=== PATIENT | female | born 1940 | race Caucasian/White ===

== ENCOUNTER → 2016-06-27 | Outpatient (CLI) | payer OTHER ==
[~2016-06-27] MED LIST: ASCO500T16 PO; ASPI81TA28 PO; CYAN250T PO; MRLP17X PO; NCNUNK PO; OMEGCAP2 PO
== END | disposition home or self-care (01) ==
LOC: C.RDSM 13:45
PROVIDERS: ATTEND Orthopaedic Surgery Sports Medicine
DX: Z09 Encounter for follow-up examination after completed treatment for conditions other than malignant neoplasm (principal)

== ENCOUNTER → 2016-07-05 | Outpatient (CLI) | payer OTHER ==
--- NOTE | 2016-07-07 15:56 | DIAGNOSTIC IMAGING REPORT ---
PET/CT HISTORY: BREAST CANCER TECHNIQUE: PET/CT was performed from the base of the skull through the pelvis following the intravenous administration of 14.8 mCi of F18-FDG. Non-contrast CT imaging was performed over the same range without breath-hold for attenuation correction of PET images and anatomic correlation, but not for primary interpretation as it is not of standard diagnostic quality. CT DOSE: COMPARISON: Head CT 01/12/2016. FINDINGS: HEAD AND NECK: There is no FDG-avid disease or significant lymphadenopathy in the imaged portions of the head and the neck. CHEST: There is no FDG-avid disease in the chest. There is no axillary, mediastinal, or hilar lymphadenopathy. There is no pleural or pericardial effusion. Stable 5 mm nodular density at the base of the left lower lobe on image 89 and a stable 2 mm nodular density within the left upper lobe image 48. These do not demonstrate abnormal FDG uptake. The ascending thoracic aorta remains distended up to 4.3 cm. There is an aberrant right subclavian artery. Old rib fractures are again noted. ABDOMEN/PELVIS: Below the diaphragm, tracer is distributed physiologically in the gastrointestinal and genitourinary tracts. There is no significant lymphadenopathy and no FDG-avid disease. MUSCULOSKELETAL: Multiple scattered lytic lesions seen within the axial and appendicular skeleton are not significantly changed. These do not demonstrate significant FDG uptake. Internal fixation of the left proximal femoral fracture is again noted. The FDG uptake associated with the fracture site has improved. This demonstrates an SUV max of 2.7, previous demonstrating an SUV max of 4.0. The subcutaneous fluid collection within the lateral acetabular hip has resolved. There remains a 2 cm hyperdense FDG avid soft tissue focus at this location. This demonstrates an SUV max of 2.7. IMPRESSION: 1. The FDG uptake associated with the internal fixation of the left proximal femoral fracture has improved. 2. The subcutaneous fluid collection within the lateral aspect of the hip has resolved. There remains a 2 cm hyperdense degenerative soft tissue focus at this location. This demonstrate an SUV max of 2.7. This could represent postoperative granulation tissue or possibly a metastatic focus. This should be reassessed on follow-up PET/CT. 3. No significant change in the multiple scattered lytic lesions seen throughout the axial and appendicular skeleton. These do not demonstrate significant FDG uptake. 4. Stable subcentimeter nodules within the left lung which do not demonstrate abnormal FDG uptake. Electronically signed by: Aleksey Ceja M.D. 07/07/2016 3:54 PM Dictated Date/Time: 07/05/2016 11:03 AM
== END | disposition home or self-care (01) ==
LOC: C.PET 07:26
PROVIDERS: ATTEND Internal Medicine Hematology
DX: C50.911 Malignant neoplasm of unspecified site of right female breast (principal); C79.51 Secondary malignant neoplasm of bone

== ENCOUNTER → 2016-08-17 | Outpatient (CLI) | payer OTHER | END | disposition home or self-care (01) | LOC: C.MAMM 08:30 | PROVIDERS: ATTEND Family Medicine | DX: M81.0 Age-related osteoporosis without current pathological fracture (principal); M85.88 Other specified disorders of bone density and structure, other site ==

== ENCOUNTER → 2016-12-08 | Outpatient (CLI) | payer OTHER ==
--- NOTE | 2016-12-11 10:05 | MAMMOGRAPHY REPORT ---
UNILATERAL LEFT DIGITAL SCREENING MAMMOGRAM TOMOSYNTHESIS WITH CAD: 12/08/2016 CLINICAL HISTORY: Asymptomatic. Personal history of breast cancer. TECHNIQUE: Breast tomosynthesis in addition to standard 2D mammography was performed. Current study was also evaluated with a Computer Aided Detection (CAD) system. Left CC and MLO 2-D and tomosynthes is images were obtained. COMPARISON: Comparison is made to exams dated: 11/01/2015 mammogram, 10/27/2014 mammogram, 10/24/2013 ma mmogram, 10/23/2012 mammogram, 10/23/2011 mammogram, and 10/17/2010 mammogram - [facility] nter. BREAST COMPOSITION: There are scattered areas of fibroglandular density in the left breast. FINDINGS: There are no suspicious masses, calcifications, or areas of architectural distortion noted in the left breast. There has been no significant interval change compared to prior exams. IMPRESSION: ACR BI-RADS CATEGORY 1: NEGATIVE There is no mammographic evidence of malignancy. A 1 year screening mammogram is recommended. The pa tient will receive written notification of the results. Approximately 10% of breast cancers are not detected with mammography. A negative mammographic report should not delay biopsy if a clinically suggestive mass is present. Brigida Garland M.D. ah/:12/08/2016 12:31:20 [employer]: Katelin NICHOLS(Nicolas)(M), [facility] letter sent: Normal 1/2 BI-RADS Code: ACR BI-RADS Category 1: Negative
== END | disposition home or self-care (01) ==
LOC: C.MAMM 08:39
PROVIDERS: ATTEND Obstetrics & Gynecology
DX: Z12.31 Encounter for screening mammogram for malignant neoplasm of breast (principal)

== ENCOUNTER → 2016-12-13 | Outpatient (CLI) | payer OTHER ==
--- NOTE | 2016-12-13 10:26 | DIAGNOSTIC IMAGING REPORT ---
PET/CT SKULL-THIGH CLINICAL HISTORY: 76 years-old Female presenting with BREAST CANCER, bilateral lytic calvarial lesions, T9 and T12 compression fractures, FDG avid lesions in the axial and appendicular skeleton, internal fixation of left proximal femoral fracture with associated FDG avidity, history of right breast carcinoma A 5, found to have metastatic osseous disease in 2016. TECHNIQUE: PET/CT was performed from the base of the skull through the proximal thighs following the intravenous administration of 12.94 mCi of F18-FDG. Blood glucose level 89 mg/dL. The injection was performed at 8:10 AM and imaging began at 9:[address] was performed for attenuation correction purposes and anatomic localization. COMPARISON: PET/CT from 07/05/2016 and 01/12/2016. CT DOSE (mGy.cm): The estimated cumulative dose is 969.17. FINDINGS: Head and neck: There is no FDG-avid disease or significant lymphadenopathy in the imaged portions of the head and the neck. Chest: The patient is status post right mastectomy. No abnormal FDG avidity in the left breast. 9 mm nodule in the left thyroid lobe, not significant changed from prior and non-FDG avid. No axillary, mediastinal, or hilar lymphadenopathy. There is no pleural or pericardial effusion. Ascending aorta remains ectatic measuring 4.3 cm in maximal transverse dimension. Aberrant right subclavian artery again noted. Top normal heart size. Aortic valve, coronary artery, mitral annular calcification. No pericardial or pleural effusion. Left lower lobe solid 5 mm nodule is essentially unchanged from prior exam (series 2 image 91). This does not demonstrate FDG avidity. The 2 mm nodule in the left upper lobe is also unchanged from prior exam (series 2 image 52). This is below the level of resolution on PET. No FDG avidity in the lung parenchyma. Linear opacities at the lung bases represent atelectasis or scarring. Airways patent. Abdomen and pelvis: Below the diaphragm, tracer is distributed physiologically in the gastrointestinal and genitourinary tracts. There is no significant lymphadenopathy and no FDG-avid disease. Musculoskeletal: Scattered lytic lesions again noted throughout the axial and appendicular skeleton, which appear stable from prior exam on anatomic imaging. With the exception of the L4 vertebral body lesion, all are non-FDG avid. At L4, the lytic lesion demonstrates minimal focal FDG avidity (max SUV 2.9), which is only minimally above background. However, this does represent a change from prior exam. The previously noted site of heterotopic ossification along the superior aspect of the left femoral neck now has a max SUV of 2.5 (previously max SUV 2.7 on 07/05/2016 and 4.0 on 01/12/2016), consistent with continued interval decrease. Heterotopic ossification also noted along the superior aspect of the greater trochanter. These are most consistent with granulation tissue and expected postsurgical changes. Multiple old rib fractures bilaterally. IMPRESSION: 1. Interval development of minimal focal FDG avidity in the lytic lesion at L4, which represents a change from prior exam. In comparison to the remainder of the diffuse lytic lesions throughout the axial and appendicular skeleton, this finding is concerning for active disease. No other sites of metastatic disease are apparent. 2. Postsurgical changes of right mastectomy. 3. Evolution of postsurgical changes of the left femur. 4. Ectatic ascending aorta measuring up to 4.3 cm, unchanged. 5. Stable pulmonary nodules measuring up to 5 mm. Electronically signed by: Galen Ashley M.D. 12/13/2016 10:24 AM Dictated Date/Time: 12/13/2016 10:05 AM
== END | disposition home or self-care (01) ==
LOC: C.PET 07:54
PROVIDERS: ATTEND Internal Medicine Hematology
DX: C50.911 Malignant neoplasm of unspecified site of right female breast (principal); C79.51 Secondary malignant neoplasm of bone; Z90.11 Acquired absence of right breast and nipple; Z98.890 Other specified postprocedural states; I77.810 Thoracic aortic ectasia; R91.8 Other nonspecific abnormal finding of lung field

== ENCOUNTER → 2016-12-25 | Outpatient (CLI) | payer OTHER | END | disposition home or self-care (01) | LOC: C.PAPS 09:38 | PROVIDERS: ATTEND Obstetrics & Gynecology | DX: Z12.4 Encounter for screening for malignant neoplasm of cervix (principal) ==

== ENCOUNTER → 2016-12-26 | Outpatient (CLI) | payer OTHER | END | disposition home or self-care (01) | LOC: C.RDSM 12:19 | PROVIDERS: ATTEND Orthopaedic Surgery Sports Medicine | DX: Z09 Encounter for follow-up examination after completed treatment for conditions other than malignant neoplasm (principal); M25.561 Pain in right knee ==

== ENCOUNTER → 2017-04-18 | Outpatient (CLI) | payer OTHER ==
--- NOTE | 2017-04-18 13:34 | DIAGNOSTIC IMAGING REPORT ---
PET/CT CLINICAL HISTORY: Breast cancer. TECHNIQUE: A PET/CT was performed from the skull base through the upper thighs following intravenous injection of 10.07 mCi of F 18 FDG IV. The injection was performed at 7:29 AM on April 18, 2017 and imaging began at 8:15 AM on April 18, 2017. Unenhanced CT was performed for attenuation correction purposes and anatomic localization. COMPARISON STUDY: PET/CT December 13, 2016. FINDINGS: Head and neck: No suspicious FDG uptake is identified within the neck. There is no cervical lymphadenopathy. Chest: There is no thoracic lymphadenopathy. Dilatation of the ascending aorta, measuring 4.3 cm at the level the main pulmonary artery is unchanged. Heart is moderately enlarged and there is extensive coronary artery calcification. Incidental note is made of an aberrant right subclavian artery. Several pulmonary nodules are unchanged since prior exam. A few left lower lobe nodules measuring up to 6 mm are similar to exam of February 20, 2011. No new pulmonary nodules are evident although lungs are suboptimally assessed due to respiratory motion. Abdomen and Pelvis: No suspicious FDG uptake is identified within the abdomen or the pelvis. A 9 mm left renal lesion measures greater than water attenuation but is unchanged from prior exams. No abdominal or pelvic lymphadenopathy is present. Musculoskeletal: A previous left femoral internal fixation is noted. Innumerable lytic lesions are noted throughout the visualized skeletal structures with several pathologic spine fractures as well as numerous pathologic rib fractures. These are similar to exam December 13, 2016. No new osseous lesions are noted. A 2.5 cm lytic lesion within the right aspect the L4 vertebral body is similar in appearance by CT but FDG ability within this lesion has increased. The SUV max for current exam is now 4.4.. Symmetric 2.9 on study of December 13, 2016. A 1.7 cm manubrial lesion as slight increase in FDG uptake was compared to prior exam with an SUV max of 2.2. It previously measured 1.8. The remainder of the lesions demonstrate no significant FDG uptake and are unchanged. IMPRESSION: 1. Mild increase in FDG avidity within the L4 vertebral and manubrial metastases consistent with mild progression of skeletal metastatic disease since PET/CT of December 13, 2016. 2. Otherwise, no significant change since prior PET/CT. No visceral metastases identified. Electronically signed by: Too Wiley M.D. 04/18/2017 1:32 PM Dictated Date/Time: 04/18/2017 9:53 AM
== END | disposition home or self-care (01) ==
LOC: C.PET 06:14
PROVIDERS: ATTEND Internal Medicine Hematology
DX: C79.51 Secondary malignant neoplasm of bone (principal); C50.911 Malignant neoplasm of unspecified site of right female breast; Z17.0 Estrogen receptor positive status [ER+]

== ENCOUNTER → 2017-08-01 | Outpatient (CLI) | payer OTHER ==
--- NOTE | 2017-08-01 13:17 | DIAGNOSTIC IMAGING REPORT ---
PET/CT CLINICAL HISTORY: Breast cancer. TECHNIQUE: A PET/CT was performed from the skull base through the upper thighs following intravenous injection of 12.52 mCi of F 18 FDG IV. The injection was performed at 9:49 AM on August 01, 2017 and imaging began at 10:58 AM on August 01, 2017. Unenhanced CT was performed for attenuation correction purposes and anatomic localization. COMPARISON STUDY: PET/CT September 16, 2017. FINDINGS: Head and neck: No cervical lymphadenopathy is identified. There is no abnormal FDG uptake within the neck. A few small thyroid nodules are noted. Chest: No suspicious pulmonary nodules are noted. Dilatation of the ascending aorta, measuring 4.3 cm, is unchanged. There is extensive coronary artery calcification. The heart is moderately enlarged. The patient is status post right mastectomy and right axillary lymph node dissection. No enlarged axillary, mediastinal or hilar lymph nodes are present. Abdomen and Pelvis: No abdominal or pelvic lymphadenopathy is present. There is no suspicious FDG uptake within the abdomen or the pelvis. There is colonic diverticulosis without evidence for acute diverticulitis. Musculoskeletal: Numerous skeletal lytic lesions are again noted. These were shown on previous PET/CT. The majority of these demonstrate no significant FDG uptake. No new lesions are identified. There is mild FDG uptake within the L4 vertebral body lesion within SUV max of 3.6. It previously measured 4.4 on exam of April 18, 2017. Mid manubrial uptake of radiotracer has slightly increased with an SUV max of 4. It previously measured 2.2 on exam of April 18, 2017. IMPRESSION: 1. Increase in mild radiotracer uptake within the manubrial lesion since PET/CT of April 18, 2017 suggestive of mild progression of skeletal metastatic disease. No significant change in mild FDG uptake within the L4 vertebral body lesion. No new skeletal lesions identified. 2. Otherwise, no significant change since prior PET/CT. No visceral metastases identified. Electronically signed by: Too Wiley M.D. 08/01/2017 1:16 PM Dictated Date/Time: 08/01/2017 12:38 PM
== END | disposition home or self-care (01) ==
LOC: C.PET 09:05
PROVIDERS: ATTEND Internal Medicine Hematology
DX: C50.411 Malignant neoplasm of upper-outer quadrant of right female breast (principal); C79.51 Secondary malignant neoplasm of bone; M89.9 Disorder of bone, unspecified; C50.911 Malignant neoplasm of unspecified site of right female breast

== ENCOUNTER → 2017-11-14 | Outpatient (CLI) | payer OTHER ==
[~2017-11-14] MED LIST changes: -ASCO500T16 PO; -CYAN250T PO; +KFL500HP PO; -MRLP17X PO; -NCNUNK PO; -OMEGCAP2 PO; +ULT50 PO; +[UNRECOGNIZED DRUG - CODE] PO
--- NOTE | 2017-11-14 09:05 | DIAGNOSTIC IMAGING REPORT ---
PET/CT SKULL-THIGH CLINICAL HISTORY: 77 years-old Female presenting with BREAST CANCER, on oral chemotherapy, diagnosed with right breast cancer in 1994, osseous metastatic disease in L4 and the sternum. TECHNIQUE: PET/CT was performed from the skull base through the proximal thighs following the intravenous administration of 13.057 mCi of F18-FDG. Blood glucose level 84 mg/dL. The injection was performed at 7:00 AM and imaging began at 7:[address] was performed for attenuation correction purposes and anatomic localization. COMPARISON: 08/01/2017. CT DOSE (mGy.cm): The estimated cumulative dose is 163.04. FINDINGS: Head and neck: No FDG-avid mass in the visualized portion of the head or neck. No FDG avid or enlarged lymph nodes in the neck. Chest: Few small nodules suggested in the thyroid, which are photopenic. Postsurgical changes of right mastectomy. Postsurgical changes of the right axilla. No FDG avid axillary, supraclavicular, hilar or mediastinal lymphadenopathy. Evaluation of the ken on anatomic imaging limited without intravenous contrast. Atherosclerosis of the aorta. Aberrant right subclavian artery. Borderline ectasia of the ascending aorta. Normal heart size. Coronary artery and aortic valve calcification. No pericardial or pleural effusion. Minimal bandlike opacities likely atelectasis. No FDG avid focal nodule or infiltrate. Airways patent. Abdomen and pelvis: Normal physiologic distribution of radiotracer in the gastrointestinal and genitourinary tracts. No FDG avid lymphadenopathy or mass lesion. Musculoskeletal: Postsurgical changes of intramedullary nail fixation of the left femoral neck and proximal metadiaphysis. Degenerative changes of the spine. Interval increase in FDG avidity of multifocal osseous metastatic disease involving the previously seen lesions in the manubrium (max SUV 5.15; previously max SUV 3.96) and L4 vertebral body (max SUV 5.32; previously max SUV 3.55). However, there is also new FDG avidity in the C7 vertebral body (max SUV 3.01), T7 right posterior elements (max SUV 2.45), L3 vertebral body (max SUV 3.07), sacrum (max SUV 4.04), and bilateral iliac bones subjacent to the sacroiliac joints, on the right (max SUV 2.35) and on the left (max SUV 2.89). Not all of these lesions have a correlate area on anatomic imaging. Additional foci of FDG avidity in the spine are more equivocal and may be degenerative related. Stable compression deformity at T11. IMPRESSION: 1. Follow-up PET/CT demonstrates increased FDG avidity of pre-existing osseous lesions and new FDG avidity of additional osseous lesions worrisome for progression of osseous metastatic disease. 2. Borderline ectasia of the ascending aorta. Electronically signed by: Galen Ashley M.D. 11/14/2017 9:04 AM Dictated Date/Time: 11/14/2017 8:46 AM
== END | disposition home or self-care (01) ==
LOC: C.PET 06:47
PROVIDERS: ATTEND Internal Medicine Hematology
DX: C79.51 Secondary malignant neoplasm of bone (principal); Z85.3 Personal history of malignant neoplasm of breast; C50.811 Malignant neoplasm of overlapping sites of right female breast; Z17.0 Estrogen receptor positive status [ER+]

== ENCOUNTER 2019-12-08 11:19 | Inpatient (IN) ==
--- NOTE | 2019-12-08 11:49 | Emergency Department Note ---
Impression & Plan Edema, Leukopenia, Breast cancer, Hypocalcemia, Elevated bilirubin, SAMUEL (acute kidney injury) ED Provider Note NAME: SIMON RECINOS AGE: 79 SEX: F : 1940 ARRIVES VIA: Walk-In INFORMANT: Patient ED PROVIDER(S): Pablo Trimble DO CHIEF COMPLAINT: Swelling in her belly and legs HPI: Patient is a 79-year-old female with a past medical history of metastatic breast cancer that presents the ER for increased swelling of her abdomen, bilateral legs and right upper extremities. She notes that she follows with [facility] hematology oncology. She has been found to have liver failure which is believed to be secondary to her metastatic cancer per family. Patient denies any headache or change in vision. No chest pain or shortness of breath. She does note that she has had significant increase in swelling in her legs and now right upper extremity. She notes is become more difficult to move. Left lower extremity is continuing to ooze clear liquid. ROS: See above HPI for pertinent positives & negatives. A total of 10 systems reviewed and were otherwise negative. PAST MEDICAL HISTORY:See Below PAST SURGICAL HISTORY:See Below FAMILY HISTORY:See Below SOCIAL HISTORY:See Below HOME MEDICATIONS:See Below ALLERGIES:See Below VITALS:See Below PHYSICAL EXAMINATION: GENERAL: Sitting up in bed, alert, ill-appearing, disheveled EYE EXAM: normal conjunctiva. PERRL and EOM's grossly intact. OROPHARYNX: no exudate, no erythema, lips, buccal mucosa, and tongue normal and mucous membranes are moist NECK: supple, no nuchal rigidity, no adenopathy, non-tender LUNGS: Clear to auscultation. Normal chest wall mechanics HEART: no murmurs, S1 normal and S2 normal ABDOMEN: abdomen soft, non-tender, normo-active bowel sounds, no masses, no rebound or guarding. BACK: Back is symmetrical on inspection and there is no deformity, no midline tenderness, no CVA tenderness. SKIN: no rashes and no bruising UPPER EXTREMITIES: Pitting edema of right hand LOWER EXTREMITIES: Significant pitting edema bilateral extremities tracking up to the hips. Left leg oozing clear liquid. NEURO EXAM: Normal sensorium, cranial nerves II-XII grossly intact, normal speech, no gross weakness of arms, no gross weakness of legs. MEDICAL DECISION MAKING: Patient is a 79-year-old female with metastatic breast cancer receiving chemotherapy the presents the ER for significant swelling in her legs. IV was established blood work was obtained. Labs show a mild leukopenia 2000 and anemia at 11,000. Platelets were appropriate 160. INR 1.2. BMP with slightly elevated creatinine 1.7 off of baseline of 1.6. T bili and LFTs were marginally elevated. Troponin was detectable but not positive. TSH was elevated as well. UA was negative. Chest x-ray was unremarkable. She is on chronic antibiotics as an outpatient for her foot wound where her toenail was removed. With the significant edema in bilateral legs tracking up to belly and now the right upper extremity did recommend admission and further work-up from the hospitalist in combination with IV Lasix. Patient and were updated bedside. They are eventually agreeable. Triage Nursing notes reviewed. Prior medical records reviewed Vital Signs: reviewed and remarkable for no significant abnormalities Differential diagnosis: Infection, dehydration, metabolic abnormality, hypo/hyperglycemia, electrolyte disturbance, anemia, hypoxia, cardiac sources, intracerebral event, toxicologic, neurologic, as well as other pathologies. ER treatment provided: See below Diagnostics interpreted by me: ECG: Sinus rhythm rate 78 Normal axis No PVCs Nonspecific ST wave changes in the lateral leads No significant change from last EKG Cardiac Monitoring: An order was placed for continuous cardiac monitoring. The monitor shows a rate of 84 with sinus rhythm. Laboratory studies: As stated above and show below. Imaging studies: Portable AP upright 1 view the chest shows no focal infiltrate or pneumothorax Consultation(s): D/w Dr. 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 Beliefs That Will Affect Care: None marital status: Current Living Situation: Spouse current occupational status: retired Other Information That Helps Us Care for You: No Feels Safe at Home: Yes Safety Concerns: Feels Safe At This Time during the past year weight has: remained stable Allergies Allergies Allergy/AdvReac Type Severity Reaction Status Date / Time diphenhydramine AdvReac Confusion Verified 12/08/19 12:26 [From Benadryl] Home Meds Home Medications Medication Instructions Recorded Confirmed aspirin 81 mg tablet,delayed 81 mg PO QAM 07/29/18 12/08/19 release tramadol 50 mg tablet 50 mg PO QID PRN 07/29/18 12/08/19 latanoprost 1 drp OPB QAM 09/19/18 12/08/19 travoprost [Travatan Z] 1 drp OPB QAM 09/19/18 12/08/19 multivitamin 1 tab PO QAM 12/08/18 12/08/19 cyanocobalamin (vitamin B-12) 0 mcg PO QAM 10/20/19 12/08/19 [Vitamin B-12] furosemide [Lasix] 20 mg PO QAM 10/20/19 12/08/19 ondansetron HCl [Zofran] 8 mg PO Q8H PRN 10/20/19 12/08/19 sertraline [Zoloft] 25 mg PO QAM 11/13/19 12/08/19 spironolactone [Aldactone] 50 mg PO QAM 11/13/19 12/08/19 Results & Data (ED) Vital Signs Vital Signs - 24 hr 12/08/19 11:20 12/08/19 12:01 12/08/19 12:10 Temperature 36.4 C L Temperature Source Oral Pulse Rate 83 81 78 Pulse Rate [Apical] Pulse Rate from SpO2 Sensor Respiratory Rate 18 18 15 Blood Pressure Blood Pressure [Left Arm] Blood Pressure Mean Blood Pressure Mean [Left Arm] Pulse Oximetry 99 Oxygen Delivery Method Room Air Sepsis Recent Fever Within 48 Hours No Sepsis New/Unexplained Change in Mental Status No Sepsis Action Taken by Nursing No Action Required 12/08/19 12:20 12/08/19 12:30 12/08/19 12:31 Temperature Temperature Source Pulse Rate 86 87 89 Pulse Rate [Apical] Pulse Rate from SpO2 Sensor Respiratory Rate 17 21 16 Blood Pressure 93/61 L Blood Pressure [Left Arm] Blood Pressure Mean 78 Blood Pressure Mean [Left Arm] Pulse Oximetry Oxygen Delivery Method Sepsis Recent Fever Within 48 Hours Sepsis New/Unexplained Change in Mental Status Sepsis Action Taken by Nursing 12/08/19 12:32 12/08/19 12:40 12/08/19 12:50 Temperature Temperature Source Pulse Rate 87 86 Pulse Rate [Apical] 87 Pulse Rate from SpO2 Sensor Respiratory Rate 18 15 12 Blood Pressure Blood Pressure [Left Arm] 93/61 L Blood Pressure Mean Blood Pressure Mean [Left Arm] 71 Pulse Oximetry 95 Oxygen Delivery Method Room Air Sepsis Recent Fever Within 48 Hours Sepsis New/Unexplained Change in Mental Status Sepsis Action Taken by Nursing 12/08/19 13:00 12/08/19 13:10 12/08/19 13:20 Temperature Temperature Source Pulse Rate 86 85 Pulse Rate [Apical] Pulse Rate from SpO2 Sensor Respiratory Rate 14 14 Blood Pressure 122/70 Blood Pressure [Left Arm] Blood Pressure Mean 88 Blood Pressure Mean [Left Arm] Pulse Oximetry Oxygen Delivery Method Sepsis Recent Fever Within 48 Hours Sepsis New/Unexplained Change in Mental Status Sepsis Action Taken by Nursing 12/08/19 13:30 12/08/19 13:40 12/08/19 13:50 Temperature Temperature Source Pulse Rate 88 86 87 Pulse Rate [Apical] Pulse Rate from SpO2 Sensor Respiratory Rate 13 14 23 Blood Pressure 106/70 Blood Pressure [Left Arm] Blood Pressure Mean 80 Blood Pressure Mean [Left Arm] Pulse Oximetry Oxygen Delivery Method Sepsis Recent Fever Within 48 Hours Sepsis New/Unexplained Change in Mental Status Sepsis Action Taken by Nursing 12/08/19 14:00 12/08/19 14:10 12/08/19 14:20 Temperature Temperature Source Pulse Rate 88 87 75 Pulse Rate [Apical] Pulse Rate from SpO2 Sensor 75 Respiratory Rate 15 21 18 Blood Pressure 105/69 Blood Pressure [Left Arm] Blood Pressure Mean 80 Blood Pressure Mean [Left Arm] Pulse Oximetry 94 Oxygen Delivery Method Sepsis Recent Fever Within 48 Hours Sepsis New/Unexplained Change in Mental Status Sepsis Action Taken by Nursing 12/08/19 14:30 12/08/19 14:40 12/08/19 14:50 Temperature Temperature Source Pulse Rate 86 87 80 Pulse Rate [Apical] Pulse Rate from SpO2 Sensor 86 88 86 Respiratory Rate 13 15 20 Blood Pressure Blood Pressure [Left Arm] Blood Pressure Mean Blood Pressure Mean [Left Arm] Pulse Oximetry 96 97 98 Oxygen Delivery Method Sepsis Recent Fever Within 48 Hours Sepsis New/Unexplained Change in Mental Status Sepsis Action Taken by Nursing 12/08/19 15:00 12/08/19 15:01 12/08/19 15:04 Temperature Temperature Source Pulse Rate 82 83 Pulse Rate [Apical] Pulse Rate from SpO2 Sensor Respiratory Rate 13 19 14 Blood Pressure 103/67 Blood Pressure [Left Arm] Blood Pressure Mean 76 Blood Pressure Mean [Left Arm] Pulse Oximetry 98 Oxygen Delivery Method Sepsis Recent Fever Within 48 Hours Sepsis New/Unexplained Change in Mental Status Sepsis Action Taken by Nursing 12/08/19 15:10 12/08/19 15:20 Temperature Temperature Source Pulse Rate 81 82 Pulse Rate [Apical] Pulse Rate from SpO2 Sensor Respiratory Rate 15 17 Blood Pressure Blood Pressure [Left Arm] Blood Pressure Mean Blood Pressure Mean [Left Arm] Pulse Oximetry Oxygen Delivery Method Sepsis Recent Fever Within 48 Hours Sepsis New/Unexplained Change in Mental Status Sepsis Action Taken by Nursing Laboratory Data Result diagrams: 12/08/19 12:25 12/08/19 12:25 Lab Results 12/08/19 12/08/19 12/08/19 Range/Units 12:25 12:25 12:25 WBC 2.67 L (4.8-10.8) K/uL RBC 3.31 L (4.2-5.4) M/uL Hgb 11.5 L (12.0-16.0) g/dL Hct 33.1 L (37-47) % MCV 100.0 (80-100) fL MCH 34.7 H (25-34) pg MCHC 34.7 (32-36) g/dL RDW Std Deviation 61.8 H (36.4-46.3) fL RDW Coeff of Dali 17.2 H (11.5-14.5) % Plt Count 160 (130-400) K/uL MPV 10.6 H (7.4-10.4) fL Immature Gran % (Auto) 0.4 % Neut % (Auto) 54.3 % Lymph % (Auto) 32.2 % [place] % (Auto) 10.9 % Eos % (Auto) 2.2 % Baso % (Auto) 0.0 % Neut # (Auto) 1.45 (1.4-6.5) K/uL Lymph # (Auto) 0.86 L (1.2-3.4) K/uL [place] # (Auto) 0.29 (0.11-0.59) K/uL Eos # (Auto) 0.06 (0-0.5) K/uL Baso # (Auto) 0.00 (0-0.2) K/uL Immature Gran # (Auto) 0.01 (0.00-0.02) K/uL PT 12.1 H (9.0-12.0) Seconds INR 1.2 H (0.9-1.1) Sodium 137 (136-145) mmol/L Potassium 4.5 (3.5-5.1) mmol/L Chloride 102 (98-107) mmol/L Carbon Dioxide 27 (21-32) mmol/L Anion Gap 8.0 (3-11) BUN 41 H (7-18) mg/dl Creatinine 1.72 H (0.6-1.2) mg/dl Est Cr Clr Drug Dosing 22.1 ml/min Est GFR ( Amer) 32.4 Est GFR (Non-Af Amer) 28.0 BUN/Creatinine Ratio 23.7 H (10-20) Glucose 117 H (70-99) mg/dl Calcium 7.9 L (8.5-10.1) mg/dl Phosphorus (2.5-4.9) mg/dl Magnesium 2.4 (1.8-2.4) mg/dl Total Bilirubin 1.1 H (0.2-1) mg/dl AST 60 H (15-37) U/L ALT 37 (12-78) U/L Alkaline Phosphatase 140 H (45-117) U/L Troponin I 0.031 (0-0.045) ng/ml Total Protein 5.9 L (6.4-8.2) gm/dl Albumin 2.6 L (3.4-5.0) gm/dl Globulin 3.2 (2.5-4.0) gm/dl Albumin/Globulin Ratio 0.8 L (0.9-2) Procalcitonin (0-0.5) ng/ml TSH 5.450 H (0.300-4.500) uIu/ml Free T4 1.08 (0.8-1.6) ng/dl Thyroxine (T4) (4.5-10.9) mcg/dl Specimen Hemolysis Urine Color Urine Appearance (Clear) Urine pH (4.5-7.5) Ur Specific [place] (1.000-1.030) Urine Protein (Negative) Urine Glucose (UA) (Negative) Urine Ketones (Negative) Urine Blood (Negative) Urine Nitrite (Negative) Urine Bilirubin (Negative) Urine Urobilinogen (Negative) Ur Leukocyte Esterase (Negative) 12/08/19 12/08/19 12/08/19 Range/Units 12:25 14:20 14:34 WBC (4.8-10.8) K/uL RBC (4.2-5.4) M/uL Hgb (12.0-16.0) g/dL Hct (37-47) % MCV (80-100) fL MCH (25-34) pg MCHC (32-36) g/dL RDW Std Deviation (36.4-46.3) fL RDW Coeff of Dali (11.5-14.5) % Plt Count (130-400) K/uL MPV (7.4-10.4) fL Immature Gran % (Auto) % Neut % (Auto) % Lymph % (Auto) % [place] % (Auto) % Eos % (Auto) % Baso % (Auto) % Neut # (Auto) (1.4-6.5) K/uL Lymph # (Auto) (1.2-3.4) K/uL [place] # (Auto) (0.11-0.59) K/uL Eos # (Auto) (0-0.5) K/uL Baso # (Auto) (0-0.2) K/uL Immature Gran # (Auto) (0.00-0.02) K/uL PT (9.0-12.0) Seconds INR (0.9-1.1) Sodium (136-145) mmol/L Potassium (3.5-5.1) mmol/L Chloride (98-107) mmol/L Carbon Dioxide (21-32) mmol/L Anion Gap (3-11) BUN (7-18) mg/dl Creatinine (0.6-1.2) mg/dl Est Cr Clr Drug Dosing ml/min Est GFR ( Amer) Est GFR (Non-Af Amer) BUN/Creatinine Ratio (10-20) Glucose (70-99) mg/dl Calcium (8.5-10.1) mg/dl Phosphorus 2.8 (2.5-4.9) mg/dl Magnesium (1.8-2.4) mg/dl Total Bilirubin (0.2-1) mg/dl AST (15-37) U/L ALT (12-78) U/L Alkaline Phosphatase (45-117) U/L Troponin I (0-0.045) ng/ml Total Protein (6.4-8.2) gm/dl Albumin (3.4-5.0) gm/dl Globulin (2.5-4.0) gm/dl Albumin/Globulin Ratio (0.9-2) Procalcitonin (0-0.5) ng/ml TSH (0.300-4.500) uIu/ml Free T4 (0.8-1.6) ng/dl Thyroxine (T4) 5.4 (4.5-10.9) mcg/dl Specimen Hemolysis Urine Color Dark Yellow Urine Appearance Clear (Clear) Urine pH 5.0 (4.5-7.5) Ur Specific [place] 1.020 (1.000-1.030) Urine Protein Negative (Negative) Urine Glucose (UA) Negative (Negative) Urine Ketones Negative (Negative) Urine Blood Negative (Negative) Urine Nitrite Negative (Negative) Urine Bilirubin Negative (Negative) Urine Urobilinogen Negative (Negative) Ur Leukocyte Esterase Negative (Negative) 12/08/19 Range/Units 14:34 WBC (4.8-10.8) K/uL RBC (4.2-5.4) M/uL Hgb (12.0-16.0) g/dL Hct (37-47) % MCV (80-100) fL MCH (25-34) pg MCHC (32-36) g/dL RDW Std Deviation (36.4-46.3) fL RDW Coeff of Dali (11.5-14.5) % Plt Count (130-400) K/uL MPV (7.4-10.4) fL Immature Gran % (Auto) % Neut % (Auto) % Lymph % (Auto) % [place] % (Auto) % Eos % (Auto) % Baso % (Auto) % Neut # (Auto) (1.4-6.5) K/uL Lymph # (Auto) (1.2-3.4) K/uL [place] # (Auto) (0.11-0.59) K/uL Eos # (Auto) (0-0.5) K/uL Baso # (Auto) (0-0.2) K/uL Immature Gran # (Auto) (0.00-0.02) K/uL PT (9.0-12.0) Seconds INR (0.9-1.1) Sodium (136-145) mmol/L Potassium (3.5-5.1) mmol/L Chloride (98-107) mmol/L Carbon Dioxide (21-32) mmol/L Anion Gap (3-11) BUN (7-18) mg/dl Creatinine (0.6-1.2) mg/dl Est Cr Clr Drug Dosing ml/min Est GFR ( Amer) Est GFR (Non-Af Amer) BUN/Creatinine Ratio (10-20) Glucose (70-99) mg/dl Calcium (8.5-10.1) mg/dl Phosphorus (2.5-4.9) mg/dl Magnesium (1.8-2.4) mg/dl Total Bilirubin (0.2-1) mg/dl AST (15-37) U/L ALT (12-78) U/L Alkaline Phosphatase (45-117) U/L Troponin I (0-0.045) ng/ml Total Protein (6.4-8.2) gm/dl Albumin (3.4-5.0) gm/dl Globulin (2.5-4.0) gm/dl Albumin/Globulin Ratio (0.9-2) Procalcitonin < 0.05 (0-0.5) ng/ml TSH (0.300-4.500) uIu/ml Free T4 (0.8-1.6) ng/dl Thyroxine (T4) (4.5-10.9) mcg/dl Specimen Hemolysis Urine Color Urine Appearance (Clear) Urine pH (4.5-7.5) Ur Specific [place] (1.000-1.030) Urine Protein (Negative) Urine Glucose (UA) (Negative) Urine Ketones (Negative) Urine Blood (Negative) Urine Nitrite (Negative) Urine Bilirubin (Negative) Urine Urobilinogen (Negative) Ur Leukocyte Esterase (Negative) Discharge Plan Visit Data Chief Complaint: Leg Injury/Pain Stated Complaint: left calf and foot leaking fluid ED Provider: Pablo Trimble Discharge Problem: Edema, Leukopenia, Breast cancer, Hypocalcemia, Elevated bilirubin, SAMUEL (acute kidney injury) Discharge Instructions Interventions: ED Discharge Assessment Last Done: 12/08/19 15:27 Forms Stand Alone Forms: My [facility] Prescriptions Prescriptions: No Action aspirin [Adult Aspirin Regimen] 81 mg tablet,delayed release (DR/EC) 81 mg PO QAM RF: 0 tramadol [Ultram] 50 mg tablet 50 mg PO QID PRN (Reason: pain) RF: 0 multivitamin [Daily Multiple] tablet 1 tab PO QAM RF: 0 travoprost [Travatan Z] 0.004 % Drops 1 drp OPB QAM RF: 0 latanoprost 0.005 % Drops 1 drp OPB QAM RF: 0 sertraline [Zoloft] 25 mg Tablet 25 mg PO QAM RF: 0 spironolactone [Aldactone] 50 mg Tablet 50 mg PO QAM RF: 0 cyanocobalamin (vitamin B-12) [Vitamin B-12] 1,000 mcg Tablet 0 mcg PO QAM RF: 0 furosemide [Lasix] 20 mg Tablet 20 mg PO QAM RF: 0 ondansetron HCl [Zofran] 8 mg Tablet 8 mg PO Q8H PRN (Reason: Nausea) RF: 0 Referrals Referrals: Herb Sullivan MD [Primary Care Provider] - Discharge Problem: Edema Qualifiers: Edema type: unspecified Qualified Code(s): R60.9 - Edema, unspecified Leukopenia Qualifiers: Leukopenia type: unspecified Qualified Code(s): D72.819 - Decreased white blood cell count, unspecified Breast cancer Qualifiers: Breast location: unspecified site of breast Estrogen receptor status: unspecified Patient sex: female Laterality: unspecified laterality Qualified Code(s): C50.919 - Malignant neoplasm of unspecified site of unspecified female breast
--- NOTE | 2019-12-08 12:10 | XRay Report ---
SINGLE VIEW CHEST CLINICAL HISTORY: Generalized weakness. FINDINGS: An AP, portable, upright chest radiograph is compared to study dated 11/13/2019. The examina tion is degraded by portable technique and patient rotation. The cardiomediastinal silhouette is un remarkable noting atherosclerotic calcification of the thoracic aorta. Chronic interstitial thickenin g is similar to previous. Atelectasis is noted at the lung bases. No airspace consolidation or large pleural effusion is identified. No pneumothorax is seen. The skeletal structures are osteopenic. Ther e are numerous healed bilateral rib fractures. There is evidence of previous vertebroplasty in the th oracic spine. IMPRESSION: No acute cardiopulmonary abnormality. ACT 112: Negative or not required by law. Electronically signed by: Jasmeet Grimes M.D. 12/08/2019 12:09 PM
[2019-12-08 12:37] LABS: Eosinophils # (auto) 0.06 K/uL (0-0.5); Eosinophils % (auto) 2.2 %; Hematocrit (blood only) 33.1 % (37-47); Hemoglobin 11.5 g/dL (12.0-16.0); Immature Granulocytes # (auto) 0.01 K/uL (0.00-0.02); Immature Granulocytes % (auto) 0.4 %; Lymphocytes # (auto) 0.86 K/uL (1.2-3.4); Lymphocytes % (auto) 32.2 %; Mean Corpuscular Hemoglobin 34.7 pg (25-34); Mean Corpuscular Hgb Conc 34.7 g/dL (32-36); Mean Platelet Volume 10.6 fL (7.4-10.4); Monocytes # (auto) 0.29 K/uL (0.11-0.59); Monocytes % (auto) 10.9 %; Neutrophils # (auto) 1.45 K/uL (1.4-6.5); Neutrophils % (auto) 54.3 %; Platelet Count 160 K/uL (130-400); RDW Coefficient of Variation 17.2 % (11.5-14.5); RDW Standard Deviation 61.8 fL (36.4-46.3); Red Blood Count 3.31 M/uL (4.2-5.4); White Blood Count 2.67 K/uL (4.8-10.8)
[2019-12-08 12:50] LABS: INR 1.2 (0.9-1.1); Prothrombin Time 12.1 Seconds (9.0-12.0)
[2019-12-08 12:58] LABS: Albumin Level 2.6 gm/dl (3.4-5.0); BUN Creatinine Ratio 23.7 (10-20); Calcium 7.9 mg/dl (8.5-10.1); Creatinine Clr Calc Pharmacy 22.1 ml/min; Est GFR (African American) 32.4; Magnesium 2.4 mg/dl (1.8-2.4); Potassium 4.5 mmol/L (3.5-5.1)
[2019-12-08 13:13] LABS: Albumin Globulin Ratio 0.8 (0.9-2); Bilirubin,Total 1.1 mg/dl (0.2-1); Globulin 3.2 gm/dl (2.5-4.0); Thyroid Stimulating Hormone 5.45 uIu/ml (0.300-4.500); Total Protein 5.9 gm/dl (6.4-8.2); Troponin I 0.031 ng/ml (0-0.045)
[2019-12-08 13:31] LABS: T4 Free Thyroxine 1.08 ng/dl (0.8-1.6)
[2019-12-08 14:34] LABS: Appearance Urine Clear (Clear); Bilirubin Urine Negative (Negative); Blood Urine Negative (Negative); Color Urine Dark Yellow; Glucose Urine UA Negative (Negative); Ketones Urine Negative (Negative); Leukocyte Esterase Urine Negative (Negative); Nitrite Urine Negative (Negative); Protein Urine Negative (Negative); Urobilinogen Urine Negative (Negative)
--- NOTE | 2019-12-08 14:36 | History & Physical Report ---
Date of Service December 08, 2019 Assessment & Plan (1) Lower extremity edema: Cellulitis of Left Foot -This is a 79 year female who follows with [facility] oncology Dr. 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 On 11/27/2019 Dr. Haynes had prescribed her Levaquin 500 mg daily for possible cellulitis of left foot which patient. Patient has history of fluid overload and has paracentesis in the past but the main concern of her family members González and son Jasmeet ([phone]) that patient has been have more seepage from the left leg. Patient's left leg had more swelling around 7 to 10 days ago and the seepage starting 2 days ago. On exam, her left leg is colder than the right leg but patient and her family insists that this is chronically the case and they reported leg imaging several months ago that did not find evidence of deep vein thrombosis or peripheral arterial disease. One of her toes of the left foot appears dusky. Patient agreed to have ultrasound of lower extremities in the hospital and for diuresis of the legs as inpatient after much convincing from her family members. -on review of systems: patient denies fevers or shortness of breath or chest pain or abdominal pain or problems with appetite or diarrhea or dysuria. She allowed to for noriega to be placed in the ED to prevent urine from going down the left leg in case she cannot get to commode in time -give ceftriaxone IV daily for now to continue treatment of cellulitis, follow the blood cultures -give Lasix 40 mg IV daily with albumin, hold home oral Lasix of 20 mg every other day for now -continue the home dose spironolactone -follow the results for the bilateral lower extremity venous and arterial ultrasounds : There is no sonographic evidence of deep venous thrombosis identified in the right or left lower extremity on venous ultrasound, arterial ultrasound performed with radiology results pending DVT prophylaxis: heparin subcutaneous 5000 units q12 (renally dosed) (2) Hypoalbuminemia: Underweight with BMI of 19.7 -serum albumin 2.6 -albumin to be given with diuretic -consult boiler operator for nutritional assessment, empirically started BOOST TID with meals (3) CKD (chronic kidney disease): -obtain nephrology consult to assist with renal function monitoring while on diuretics (4) Breast cancer metastasized to multiple sites: -follows with [facility] oncology Dr. 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 Wei will be following the patient starting on 12/09/2019 History of Present Illness This is a 79 year female who follows with [facility] oncology Dr. 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 On 11/27/2019 Dr. Haynes had prescribed her Levaquin 500 mg daily for possible cellulitis of left foot which patient. Patient has history of fluid overload and has paracentesis in the past but the main concern of her family members González and son Jasmeet ([phone]) that patient has been have more seepage from the left leg. Patient's left leg had more swelling around 7 to 10 days ago and the seepage starting 2 days ago. On exam, her left leg is colder than the right leg but patient and her family insists that this is chronically the case and they reported leg imaging several months ago that did not find evidence of deep vein thrombosis or peripheral arterial disease. One of her toes of the left foot appears dusky. Patient agreed to have ultrasound of lower extremities in the hospital and for diuresis of the legs as inpatient after much convincing from her family members. on review of systems: patient denies fevers or shortness of breath or chest pain or abdominal pain or problems with appetite or diarrhea or dysuria. She allowed to for noriega to be placed in the ED to prevent urine from going down the left leg in case she cannot get to commode in time Family Health history of mother with diabetes mellitus and father with kidney failure Primary Care Provider: Herb Sullivan MD Allergies Allergy/AdvReac Type Severity Reaction Status Date / Time diphenhydramine AdvReac Confusion Verified 12/08/19 12:26 [From Benadryl] Home Medications Home Medications Medication Instructions Recorded Confirmed Type aspirin 81 mg tablet,delayed 81 mg PO QAM 07/29/18 12/08/19 History release tramadol 50 mg tablet 50 mg PO QID PRN 07/29/18 12/08/19 History latanoprost 1 drp OPB QAM 09/19/18 12/08/19 History travoprost [Travatan Z] 1 drp OPB QAM 09/19/18 12/08/19 History multivitamin 1 tab PO QAM 12/08/18 12/08/19 History cyanocobalamin (vitamin B-12) 0 mcg PO QAM 10/20/19 12/08/19 History [Vitamin B-12] furosemide [Lasix] 20 mg PO QAM 10/20/19 12/08/19 History ondansetron HCl [Zofran] 8 mg PO Q8H PRN 10/20/19 12/08/19 History sertraline [Zoloft] 25 mg PO QAM 11/13/19 12/08/19 History spironolactone [Aldactone] 50 mg PO QAM 11/13/19 12/08/19 History Past Med/Surg History Medical History (Updated 12/08/19 @ 16:51 by Christian Smith MD) Arthritis Breast CA Left leg injury plate in left leg Surgical History H/O mastectomy S/P appendectomy S/P hernia repair Family History Other Cancer Deafness Denies family history of Bleeding disorder Social History Smoking Status: Never smoker Second Hand Exposure: No; Hx Alcohol Use: No Hx Substance Use: No Preferred Language: Welsh Communication Ability: Effective Resource Analyst Required: No Beliefs That Will Affect Care: None marital status: Current Living Situation: Spouse current occupational status: retired Other Information That Helps Us Care for You: No Feels Safe at Home: Yes Safety Concerns: Feels Safe At This Time during the past year weight has: remained stable Review of Systems Review of Systems: All systems reviewed & are unremarkable except as noted in Subjective Physical Exam Constitutional: + thin and comfortable Eyes: PERRL, conjunctivae normal, anicteric sclerae EOM intact bilaterally ENMT: external ear and nose normal, oropharynx normal Neck: trachea midline, no thyromegaly normal visual inspection Respiratory: normal respiratory effort, lungs clear to auscultation Cardiovascular: Rate/Rhythm: regular rate and regular rhythm Gastrointestinal (Abdomen): Inspection/Auscultation: normal bowel sounds Percussion/Palpation: abdomen soft (minimal abdomen distension) Musculoskeletal: Head/Neck/Chest: normocephalic and head atraumatic Neurologic: PERRL, EOMI, accommodation nl, no face palsy, no dysarthria moves all extremities Psychiatric: Orientation: alert, oriented to person, oriented to place, oriented to time and cooperative Genitourinary: a noriega was placed in the ED Results & Data Results & Data ([facility]) Vital Signs (Past 12 Hours) Vital Signs Temp Pulse Pulse Resp BP BP Pulse Ox 12/08/19 14:30 86 13 96 12/08/19 14:20 75 18 94 12/08/19 14:10 87 21 12/08/19 14:00 88 15 105/69 12/08/19 13:50 87 23 12/08/19 13:40 86 14 12/08/19 13:30 88 13 106/70 12/08/19 13:20 85 14 12/08/19 13:10 14 12/08/19 13:00 86 122/70 12/08/19 12:50 86 12 12/08/19 12:40 87 15 12/08/19 12:32 87 18 93/61 L 95 12/08/19 12:31 89 16 93/61 L 12/08/19 12:30 87 21 12/08/19 12:20 86 17 12/08/19 12:10 78 15 12/08/19 12:01 81 18 12/08/19 11:20 36.4 C L 83 18 99
[2019-12-08] MEDS ORDERED: ACETAMINOPHEN 325 MG TAB PO PRN (14:37)
[2019-12-08] MEDS ORDERED: TRAMADOL HCL 50 MG TABLET PO PRN (14:37)
--- NOTE | 2019-12-08 16:42 | Ultrasound Report ---
ULTRASOUND BILATERAL LOWER EXTREMITY VENOUS CLINICAL HISTORY: Lower extremity edema. COMPARISON STUDY: Right lower extremity venous ultrasound dated 04/11/2018. TECHNIQUE: Real-time, grayscale, and color Doppler sonography of the deep veins of the right and left lower extremity was performed from the inguinal crease to the calf. Compression and augmentation wer e utilized. FINDINGS: There is no sonographic evidence of deep venous thrombosis identified in the right or left lower extremity. The common femoral, superficial femoral, and popliteal veins are patent and normally compressible bilaterally. The greater saphenous vein and the profunda femoris vein at the junction w ith the common femoral vein are clear in both legs. The visualized calf veins are patent bilaterally. Soft tissue edema is present in both legs. IMPRESSION: There is no sonographic evidence of deep venous thrombosis identified in the right or lef t lower extremity. ACT 112: Negative or not required by law. Electronically signed by: Jasmeet Grimes M.D. 12/08/2019 4:40 PM
--- NOTE | 2019-12-08 17:16 | Ultrasound Report ---
ULTRASOUND BILATERAL LOWER EXTREMITY ARTERIAL CLINICAL HISTORY: Lower extremity edema. COMPARISON STUDY: No priors. FINDINGS: Real-time, grayscale, and color Doppler sonography of the arteries of the right and left lo wer extremity is performed from the inguinal crease to the foot. Ankle-brachial indices were not asse ssed as the lower extremities were noncompressible due to edema. FINDINGS: Right lower extremity: Atherosclerotic plaque and irregularity seen throughout the arteries of the ri ght lower extremity. There are triphasic arterial waveforms in the right common femoral artery with v elocities measuring up to 39 cm/s. The profunda femoris artery is patent with velocities measuring up to 26 cm/s. There are triphasic arterial waveforms seen throughout the superficial femoral and popli teal arteries. Velocities in the superficial femoral artery measure up to 51 cm/s, and velocities in the popliteal artery measure up to 41 cm/s. There is three-vessel runoff to the foot. Velocities in t he calf arteries measure up to 34 cm/s. The dorsalis pedis artery is patent with velocities measuring up to 32 cm/s. Left leg lower extremity: Atherosclerotic plaque and irregularity seen throughout the arteries of the left lower extremity. There are triphasic arterial waveforms in the left common femoral artery with velocities measuring up to 40 cm/s. The profunda femoris artery is patent with velocities measuring u p to 42 cm/s. There are triphasic waveforms seen throughout the superficial femoral and popliteal art eries. Velocities in the superficial femoral artery measure up to 48 cm/s, and velocities in the popl iteal artery measure up to 27 cm/s. There is three-vessel runoff to the foot. Velocities within the c senior care arteries measure up to 51 cm/s. The dorsalis pedis artery is patent with velocities measuring up to 17 cm/s. IMPRESSION: 1. There is no sonographic evidence of high-grade stenosis or focal vessel cut off throughout the art eries of the right or left lower extremity. 2. Ankle brachial indices could not be assessed due to lower extremity edema. Dictated: 12/08/2019 4:37 PM Transcribed: 12/08/2019 5:03 PM Luz Maria [phone] Kwaku Electronically signed by: Jasmeet Grimes M.D. 12/08/2019 5:15 PM
[2019-12-08] MEDS ORDERED: ALBUMIN 25% 50 ML with FUROSEMIDE 40 MG IV SCH (17:30)
[2019-12-08] MEDS: cefTRIAXone SODIUM 1,000 MG in DEXTROSE 5% 50 ML IV SCH (19:03)
[2019-12-08] MEDS: HEPARIN SOD 5,000 UNIT/0.5 ML VIAL SQ SCH (20:19)
--- NOTE | 2019-12-08 21:16 | Electrocardiogram Report ---
Test Reason : Blood Pressure : / mmHG Vent. Rate : 078 BPM Atrial Rate : 078 BPM P-R Int : 136 ms QRS Dur : 074 ms QT Int : 392 ms P-R-T Axes : 077 003 051 degrees QTc Int : 446 ms Normal sinus rhythm Low voltage QRS Cannot rule out Anterior infarct (cited on or before 26-FEB-2015) Nonspecific T wave abnormality Abnormal ECG When compared with ECG of 13-NOV-2019 09:57, Questionable change in initial forces of Septal leads T wave inversion no longer evident in Lateral leads Confirmed by Saurabh Melendez ([id number]) on 12/08/2019 9:15:24 PM Referred By: REFERRED SELF Confirmed By:Saurabh Melendez
[2019-12-09 00:42] LABS: Appearance Urine Clear (Clear); Bilirubin Urine Negative (Negative); Blood Urine Negative (Negative); Color Urine Dark Yellow; Glucose Urine UA Negative (Negative); Ketones Urine Negative (Negative); Leukocyte Esterase Urine Negative (Negative); Nitrite Urine Negative (Negative); Protein Urine Negative (Negative); Specific Gravity Urine 1.016 (1.000-1.030); Urobilinogen Urine Negative (Negative)
[2019-12-09 08:03] LABS: Basophils # (auto) 0.02 K/uL (0-0.2); Basophils % (auto) 0.6 %; Eosinophils # (auto) 0.06 K/uL (0-0.5); Eosinophils % (auto) 1.9 %; Hematocrit (blood only) 31.3 % (37-47); Hemoglobin 10.7 g/dL (12.0-16.0); Immature Granulocytes # (auto) 0.01 K/uL (0.00-0.02); Immature Granulocytes % (auto) 0.3 %; Lymphocytes # (auto) 1.16 K/uL (1.2-3.4); Lymphocytes % (auto) 37.4 %; Mean Corpuscular Hgb Conc 34.2 g/dL (32-36); Mean Corpuscular Volume 99.4 fL (80-100); Mean Platelet Volume 10.4 fL (7.4-10.4); Monocytes # (auto) 0.49 K/uL (0.11-0.59); Monocytes % (auto) 15.8 %; Neutrophils # (auto) 1.36 K/uL (1.4-6.5); Platelet Count 144 K/uL (130-400); RDW Coefficient of Variation 17.6 % (11.5-14.5); RDW Standard Deviation 62.3 fL (36.4-46.3); Red Blood Count 3.15 M/uL (4.2-5.4)
[2019-12-09 08:27] LABS: Albumin Level 2.8 gm/dl (3.4-5.0); BUN Creatinine Ratio 25.6 (10-20); Creatinine Clr Calc Pharmacy 23.7 ml/min; Est GFR (African American) 35.4; Est GFR (Non-African American) 30.5; Magnesium 2.3 mg/dl (1.8-2.4); Potassium 4.2 mmol/L (3.5-5.1)
[2019-12-09 08:30] LABS: Albumin Globulin Ratio 1.1 (0.9-2); Bilirubin,Total 1.1 mg/dl (0.2-1); Globulin 2.6 gm/dl (2.5-4.0); Phosphorus 2.7 mg/dl (2.5-4.9); Total Protein 5.4 gm/dl (6.4-8.2)
[2019-12-09] MEDS ORDERED: SPIRONOLACTONE 25 MG TAB PO SCH (09:00)
--- NOTE | 2019-12-09 09:02 | Hospitalist Progress Note ---
Date of Service December 09, 2019 Assessment & Plan (1) Lower extremity edema: Cellulitis of Left Foot 79 year female who follows with [facility] oncology Dr. 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 On 11/27/2019 Dr. Haynes had prescribed her Levaquin 500 mg daily for possible cellulitis of left foot which patient. History of fluid overload and has paracentesis in the past Doppler negative for DVT Continue iv ceftriazone for cellulitis Currently fluid overloaded Continue iv lasix and albumin Will appreciate nephrology recommendation (2) Hypoalbuminemia: Underweight with BMI of 19.7 serum albumin 2.6 Patient is malnourished likely from chronic medical problems and malignancy Get nutrition consult (3) CKD (chronic kidney disease): Stable Appreciate nephrology recommendations with respect to fluid overload (4) Breast cancer metastasized to multiple sites: Follows with [facility] oncology Dr. 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 Reports left foot pain and bilateral leg swelling Denied any other complaints Physical Exam Constitutional: + well hydrated; no acute distress Elderly woman chronically ill looking Eyes: PERRL, conjunctivae normal, anicteric sclerae ENMT: external ear and nose normal, oropharynx normal Respiratory: normal respiratory effort, lungs clear to auscultation Cardiovascular: RRR S1 S2 bilateral pedal edema Gastrointestinal (Abdomen): Inspection/Auscultation: + abdomen distended and normal bowel sounds Percussion/Palpation: abdomen soft; abdomen nontender Musculoskeletal: Bilateral leg edema, left foot erythema Neurologic: PERRL, EOMI, accommodation nl, no face palsy, no dysarthria Psychiatric: A+Ox3, euthymic affect Results & Data Results & Data ([facility]) Vital Signs (Past 12 Hours) Vital Signs Temp Pulse Pulse Pulse Resp BP Pulse Ox 12/09/19 07:59 36.3 C L 85 18 90/63 L 94 12/09/19 04:00 36.5 C 93 H 18 85/56 L 97 12/08/19 22:20 91 H 12/08/19 22:00 36.9 C 94 H 20 106/72 99 Laboratory Results Laboratory Results - last 24 hr 12/09/19 12/09/19 12/09/19 00:18 07:49 07:49 WBC 3.10 L RBC 3.15 L Hgb 10.7 L Hct 31.3 L MCV 99.4 MCH 34.0 MCHC 34.2 RDW Std Deviation 62.3 H RDW Coeff of Dali 17.6 H Plt Count 144 MPV 10.4 Immature Gran % (Auto) 0.3 Neut % (Auto) 44.0 Lymph % (Auto) 37.4 [place] % (Auto) 15.8 Eos % (Auto) 1.9 Baso % (Auto) 0.6 Neut # (Auto) 1.36 L Lymph # (Auto) 1.16 L [place] # (Auto) 0.49 Eos # (Auto) 0.06 Baso # (Auto) 0.02 Immature Gran # (Auto) 0.01 Sodium 139 Potassium 4.2 Chloride 105 Carbon Dioxide 26 Anion Gap 8.0 BUN 41 H Creatinine 1.60 H Est Cr Clr Drug Dosing 23.7 Est GFR ( Amer) 35.4 Est GFR (Non-Af Amer) 30.5 BUN/Creatinine Ratio 25.6 H Glucose 99 Calcium 8.0 L Phosphorus 2.7 Magnesium 2.3 Total Bilirubin 1.1 H AST 57 H ALT 35 Alkaline Phosphatase 152 H Total Protein 5.4 L Albumin 2.8 L Globulin 2.6 Albumin/Globulin Ratio 1.1 Urine Color Dark Yellow Urine Appearance Clear Urine pH 5.0 Ur Specific [place] 1.016 Urine Protein Negative Urine Glucose (UA) Negative Urine Ketones Negative Urine Blood Negative Urine Nitrite Negative Urine Bilirubin Negative Urine Urobilinogen Negative Ur Leukocyte Esterase Negative Ur Random Creatinine U Random Total Protein Protein/Creatinin Ratio 12/09/19 Unknown WBC RBC Hgb Hct MCV MCH MCHC RDW Std Deviation RDW Coeff of Dali Plt Count MPV Immature Gran % (Auto) Neut % (Auto) Lymph % (Auto) [place] % (Auto) Eos % (Auto) Baso % (Auto) Neut # (Auto) Lymph # (Auto) [place] # (Auto) Eos # (Auto) Baso # (Auto) Immature Gran # (Auto) Sodium Potassium Chloride Carbon Dioxide Anion Gap BUN Creatinine Est Cr Clr Drug Dosing Est GFR ( Amer) Est GFR (Non-Af Amer) BUN/Creatinine Ratio Glucose Calcium Phosphorus Magnesium Total Bilirubin AST ALT Alkaline Phosphatase Total Protein Albumin Globulin Albumin/Globulin Ratio Urine Color Urine Appearance Urine pH Ur Specific [place] Urine Protein Urine Glucose (UA) Urine Ketones Urine Blood Urine Nitrite Urine Bilirubin Urine Urobilinogen Ur Leukocyte Esterase Ur Random Creatinine 45.4 U Random Total Protein 6.2 Protein/Creatinin Ratio 0.1
[2019-12-09] MEDS: ASPIRIN 81 MG ECTAB PO SCH (09:10)
[2019-12-09] MEDS: MULTIVITAMIN TAB PO SCH (09:11)
[2019-12-09] MEDS: HEPARIN SOD 5,000 UNIT/0.5 ML VIAL SQ SCH ×2 (09:11→20:24)
[2019-12-09] MEDS: CYANOCOBALAMIN 500 MCG TABLET (VITAMIN B-12) PO SCH (09:12)
[2019-12-09] MEDS: LATANOPROST 0.005% OP SOLN 2.5 ML BTL OPB SCH (09:12)
[2019-12-09] MEDS: TRAVOPROST Z 0.004% OPH SOLN 2.5 ML BTL OPB SCH (09:12)
[2019-12-09] MEDS: SERTRALINE HCL 50 MG TABLET PO SCH (09:13)
--- NOTE | 2019-12-09 10:37 | Nephrology Consultation ---
Date of Consultation December 09, 2019 Assessment & Plan (1) Lower extremity edema: behaving like a liver patient at this point and have added this dx to her med hx given her ascites needing 2 paracentesis this summer, on lasix/claudia as OP, with pl effusions late September on imaging and LE edema -limited po fluids to 1.5L daily > she agrees to try this for 24-48 hrs -ordered Low Na diet -ordered daily standing wt -stopped spironolactone -changed lasix / albumin dose > 20 mg IV lasix in 25% albumin to be given 6 am, noon , 6pm ongoing -ok to cont w/ noriega for now >>attempted to reach at contact # provided > no answer; need to know if she's taking naproxen or other nsaids as OP >> if so needs to stop -check prot/creat ratio ordered Present on Admission?: Yes (2) CKD (chronic kidney disease) stage 3, GFR 30-59 ml/min: needs daily bmp; low threshold for OP follow up with nephro. avoid nsaids. marked vol OL as above; chemistries acceptable; hypotension noted and c/w emerging renal dz Present on Admission?: Yes (3) Breast cancer metastasized to multiple sites: History of Present Illness Reason for Consultation: CKD pt needs diuresis Requesting Physician: Dr Smith Attending Physician: Alyssa Wei MD History of Present Illness 79 y/o F CKD pt whom I'm asked to see to help with diuresis needs after she was admitted yesterday with L foot cellulitis in the setting of significant lower extremity edema BL and volume overload. PMH includes BRCA with mets to bones and liver, compression fracture T spine summer 2019, OA, CKD3. Her baseline creatinine is mid ones since at least late 2017. She presented with creatinine 1.8, at 1.6 this am. Does not follow with nephrology. She has been having more issues with volume overload recently. On October 21, 2019, had 1.3L paracentesis. She underwent 3L paracentesis on 11/19/19 here at [facility] as OP-no tumor cells seen on that specimen. From what I can gather in review of her chart in [facility], she started naproxen sometime this September. The patient is not sure if she is on this or not >> asks me to discuss with her . Also seen in ER 11/13/19 for altered MS a few days after paclitaxel dosing >> her oncologist's impression is that benadry contributed to MS changes. Her baseline bp is usually in 100-120s systolic; since arrival yesterday, has had about half her readings in 100s systolic and others in 90s. She is getting lasix 40 mg daily with albumin. also on spironolactone 50 mg daily, her outpt dose. No dietary limits. Pt denies having been on FR in the past and has concerns about whether she can follow it Allergies Allergy/AdvReac Type Severity Reaction Status Date / Time diphenhydramine AdvReac Confusion Verified 12/08/19 12:26 [From Benadryl] Home Medications Home Medications Medication Instructions Recorded Confirmed Type aspirin 81 mg tablet,delayed 81 mg PO QAM 07/29/18 12/08/19 History release tramadol 50 mg tablet 50 mg PO QID PRN 07/29/18 12/08/19 History latanoprost 1 drp OPB QAM 09/19/18 12/08/19 History travoprost [Travatan Z] 1 drp OPB QAM 09/19/18 12/08/19 History multivitamin 1 tab PO QAM 12/08/18 12/08/19 History cyanocobalamin (vitamin B-12) 0 mcg PO QAM 10/20/19 12/08/19 History [Vitamin B-12] furosemide [Lasix] 20 mg PO QAM 10/20/19 12/08/19 History ondansetron HCl [Zofran] 8 mg PO Q8H PRN 10/20/19 12/08/19 History sertraline [Zoloft] 25 mg PO QAM 11/13/19 12/08/19 History spironolactone [Aldactone] 50 mg PO QAM 11/13/19 12/08/19 History Patient History Medical History Arthritis Breast CA CKD (chronic kidney disease) stage 3, GFR 30-59 ml/min Left leg injury plate in left leg Liver disease, chronic Due to breast cancer metastases Surgical History H/O mastectomy S/P appendectomy S/P hernia repair Family History Other Cancer Deafness Denies family history of Bleeding disorder Social History Smoking Status: Never smoker Second Hand Exposure: No; Hx Alcohol Use: No Hx Substance Use: No Preferred Language: Citizen Of [place] Communication Ability: Effective Track Manager Required: No Beliefs That Will Affect Care: None marital status: Current Living Situation: Spouse current occupational status: retired Other Information That Helps Us Care for You: No Feels Safe at Home: Yes Safety Concerns: Feels Safe At This Time during the past year weight has: remained stable Review of Systems Review of Systems: All systems reviewed & are unremarkable except as noted in HPI & below Constitutional: no weight gain Endorses thirst Eyes: no worsening vision Respiratory: no dyspnea and no stopping breathing during sleep Denies orthopnea Cardiovascular: + edema Gastrointestinal: + early satiety; no abdominal pain, no nausea, no pain with swallowing and no diarrhea/loose stools Genitourinary: Denies new or worrisome voiding symptoms Integumentary: + wounds (Does not mention these; states her edema is only on the left leg) Physical Exam Constitutional: well developed, + cachectic and cooperative; no acute distress Sitting up in chair on room air, no apparent distress Eyes: EOM intact bilaterally ENMT: Ears: no external ear abnormality Nose: no external nose abnormality Mouth: + dry oral mucous membranes Neck: no nuchal rigidity Respiratory: normal respiratory effort Auscultation: + diminished lung sounds (But clear) Cardiovascular: Rate/Rhythm: + tachycardic Extremities: + edema (4+ BL pedal; 3+ BL to hips r= L) Gastrointestinal (Abdomen): Inspection/Auscultation: normal bowel sounds Percussion/Palpation: abdomen soft; abdomen nontender Musculoskeletal: generalized weakness Skin: no rashes, warm and dry + wound (L pretibial superfical; L foot not examined) Neurologic: velasquez, fluent speech, no tremor Psychiatric: Orientation: alert and oriented x 3 Eye Contact: + fair eye contact Speech: normal rate/rhythm/volume of speech Affect: + flat affect Insight: + limited insight (states edema not equal in her legs) Judgement: + limited judgement (not sure of her meds) Genitourinary: noriega present with adequate urine Results & Data ([facility]) Vital Signs (Past 12 Hours) Vital Signs Temp Pulse Pulse Resp BP Pulse Ox 12/09/19 07:59 36.3 C L 85 18 90/63 L 94 12/09/19 04:00 36.5 C 93 H 18 85/56 L 97 Laboratory Results 12/09/19 07:49 12/09/19 07:49 UA > dark clear yellow urine; 1016 SG; pH 5; dipstick negative Diagnostic Findings BLE arterial dopplers admission "There is no sonographic evidence of high-grade stenosis or focal vessel cut off throughout the arteries of the right or left lower extremity. Ankle brachial indices could not be assessed due to lower extremity edema." [facility] [place]pelvis 10/20/2019 1. Suboptimal examination without oral and IV contrast. 2. No acute infectious or inflammatory findings are identified in the abdomen or pelvis. 3. Moderate to large volume of abdominopelvic ascites. This is new from the 05/26/2019 PET assessment. 4. Left larger than right pleural effusions. 5. The liver is atrophic, markedly heterogeneous in attenuation, and with nodularity of the hepatic surface contour. This likely represents changes of diffuse hepatic metastatic disease/pseudocirrhosis. Correlation the patient's oncological history will be required. 6. Findings of diffuse mixed lytic/blastic osseous metastatic disease are again noted. 7. Moderate hiatal hernia. CXR FINDINGS: An AP, portable, upright chest radiograph is compared to study dated 11/13/2019. The examination is degraded by portable technique and patient rotation. The cardiomediastinal silhouette is unremarkable noting atherosclerotic calcification of the thoracic aorta. Chronic interstitial thickening is similar to previous. Atelectasis is noted at the lung bases. No airspace consolidation or large pleural effusion is identified. No pneumothorax is seen. The skeletal structures are osteopenic. There are numerous healed bilateral rib fractures. There is evidence of previous vertebroplasty in the thoracic spine. IMPRESSION: No acute cardiopulmonary abnormality.
[2019-12-09] MEDS ORDERED: ALBUMIN 25% IV SCH (11:00)
[2019-12-09] MEDS ORDERED: FUROSEMIDE IV SCH (11:00)
[2019-12-09] MEDS: ALBUMIN 25% 50 ML with FUROSEMIDE 20 MG IV SCH ×2 (13:27→17:55)
[2019-12-09 14:42] LABS: Creatinine Urine Random 45.4 mg/dl; Protein Creatinine Ratio Urine 0.1 (0-0.2); Total Protein Urine Random 6.2 mg/dl (0-11.9)
[2019-12-09] MEDS: cefTRIAXone SODIUM 1,000 MG in DEXTROSE 5% 50 ML IV SCH (17:07)
[2019-12-10] MEDS: ALBUMIN 25% 50 ML with FUROSEMIDE 20 MG IV SCH ×2 (06:00→12:36)
[2019-12-10 07:08] LABS: Hematocrit (blood only) 24.1 % (37-47); Hemoglobin 8.4 g/dL (12.0-16.0); Mean Corpuscular Hemoglobin 34.6 pg (25-34); Mean Corpuscular Hgb Conc 34.9 g/dL (32-36); Mean Corpuscular Volume 99.2 fL (80-100); Mean Platelet Volume 10.5 fL (7.4-10.4); Platelet Count 144 K/uL (130-400); RDW Coefficient of Variation 17.5 % (11.5-14.5); RDW Standard Deviation 62.7 fL (36.4-46.3); Red Blood Count 2.43 M/uL (4.2-5.4); White Blood Count 2.75 K/uL (4.8-10.8)
[2019-12-10 07:40] LABS: BUN Creatinine Ratio 23.6 (10-20); Calcium 7.8 mg/dl (8.5-10.1); Est GFR (African American) 30.5; Est GFR (Non-African American) 26.3; Magnesium 2.1 mg/dl (1.8-2.4); Phosphorus 2.7 mg/dl (2.5-4.9); Potassium 3.9 mmol/L (3.5-5.1)
[2019-12-10] MEDS: SERTRALINE HCL 50 MG TABLET PO SCH (07:52)
[2019-12-10] MEDS: MULTIVITAMIN TAB PO SCH (07:52)
[2019-12-10] MEDS: ASPIRIN 81 MG ECTAB PO SCH (07:52)
[2019-12-10] MEDS: CYANOCOBALAMIN 500 MCG TABLET (VITAMIN B-12) PO SCH (07:52)
[2019-12-10] MEDS: LATANOPROST 0.005% OP SOLN 2.5 ML BTL OPB SCH (07:57)
[2019-12-10] MEDS: HEPARIN SOD 5,000 UNIT/0.5 ML VIAL SQ SCH (07:57)
[2019-12-10] MEDS: TRAVOPROST Z 0.004% OPH SOLN 2.5 ML BTL OPB SCH (07:57)
--- NOTE | 2019-12-10 09:03 | Nephrology Progress Note ---
Date of Service December 10, 2019 Assessment & Plan (1) Lower extremity edema: behaving like a liver patient at this point and have added this dx to her med hx given her ascites needing 2 paracentesis this summer, on lasix/claudia as OP, with pl effusions late September on imaging and LE edema -limited po fluids to 1.5L daily > she agrees to try this for 24-48 hrs; not coming anywhere near this if intake and output is accurate >> to cont at d/c as is low Na diet -ordered daily standing wt>>> so far not a single standing weight recorded and this is vital to her care will discuss again with care team>>recommended 3x weekly standing wt at home Received a text mid afternoon pt is adamant for d/c home; I believe this is premature and told her so this am: believe she would benefit from more iv abtx. Pt insistent on d/c. Offered following d/c recs to Dr Thomas -as above wts, diet -spironolactone 12.5 mg daily -lasix 60 mg po 2 doses daily at least 4h apart -bMP in one week -CKD clinic f/u w / me or PA in [facility] in 2-3 wks (per request) -cont NSAID avoidance (2) CKD (chronic kidney disease) stage 3, GFR 30-59 ml/min: as above; at or just over OP baseline function today, day of d/c. ongoing hypotension as liver dz emerging; CKD likely from complications of cancer and cancer therapy; fortunately no proteinuria (3) Breast cancer metastasized to multiple sites: now c/b more overt liver complications from liver mets Present on Admission?: Yes Admission and Anticipated Discharge Date Admission Date: December 08, 2019 Subjective If intake and output correct, patient is only 50 cc negative since admission; seen on rounds this am at about 0940; pt first sent me away and tried to send me away a second time but her was there and asked her to agree to exam which she did; c/o fatigue; c/o sore L toe; denies worsening ascites; not sure if edema any better; adamant for d/c home; does tell me she takes no naproxen at home Review of Systems Review of Systems: All systems reviewed & are unremarkable except as noted in HPI & below Constitutional: + fatigue Physical Exam Constitutional: well developed, + cachectic and + frail appearing; no acute distress Eyes: EOM intact bilaterally ENMT: Ears: no external ear abnormality Nose: no external nose abnormality Mouth: + dry oral mucous membranes Neck: no nuchal rigidity Respiratory: normal respiratory effort Auscultation: + diminished lung sounds (But clear) Cardiovascular: Rate/Rhythm: + tachycardic Extremities: + edema (BLE in tubigrips and improvd; 3+ BL to hips proximally) Gastrointestinal (Abdomen): Inspection/Auscultation: normal bowel sounds Percussion/Palpation: abdomen soft; abdomen nontender Skin: no rashes, warm and dry + wound (L pretibial superfical; L foot not examined) Psychiatric: Orientation: alert and oriented x 3 Eye Contact: + fair eye contact Speech: normal rate/rhythm/volume of speech Affect: + irritable affect Insight: + limited insight Judgement: + limited judgement Results & Data ([facility]) Vital Signs (Past 12 Hours) Vital Signs Temp Pulse Pulse Resp BP Pulse Ox 12/10/19 07:16 90 12/10/19 07:01 37.1 C 90 16 97/64 L 96 12/10/19 03:13 37.1 C 98 H 14 91/60 L 97 12/09/19 23:45 87 12/09/19 22:57 36.5 C 90 14 102/64 97 Laboratory Results 12/10/19 06:47 12/10/19 06:47
--- NOTE | 2019-12-10 09:58 | Hospitalist Progress Note ---
Date of Service December 10, 2019 Assessment & Plan (1) Lower extremity edema: Cellulitis of Left Foot 79 year female who follows with [facility] oncology Dr. 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 On 11/27/2019 Dr. Haynes had prescribed her Levaquin 500 mg daily for possible cellulitis of left foot which patient. History of fluid overload and has paracentesis in the past Doppler negative for DVT Continue iv ceftriaxone for cellulitis while inpt, will switch to p.o. antibiotic Currently fluid overloaded Continue iv lasix and albumin while inpt Will appreciate nephrology recommendation (2) Hypoalbuminemia: Severe protein calorie malnutrition underweight with BMI of 19.7 serum albumin 2.6 Patient is malnourished likely from chronic medical problems and malignancy Nutrition consulted, patient has supplemental boost (3) CKD (chronic kidney disease): Stable Appreciate nephrology recommendations with respect to fluid overload Discussed with Dr. Matias, patient will follow-up with CKD clinic in 2 to 3 weeks, she will be discharged on Lasix 60 mg twice a day and spironolactone 12.5 mg daily patient will also weigh herself daily or at least 3 times a week. Also recommend BMP in 1 week. Continue current sodium and fluid restriction. (4) Breast cancer metastasized to multiple sites: Follows with [facility] oncology Dr. 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), she has had received chemotherapy treatments in the recent past PT/OT evaluations, case management consult prn pain medications (5) Chronic anemia: Hb at baseline today hemoglobin lower around 9, recommend to follow-up as outpatient Primary open angle glaucoma Continue her home eyedrops DVT Ppx - hep sq Spoke with patient and about plans They are more interested in getting some fluid off her and having her discharged to follow up with her oncologist Patient and her are interested in going home and follow-up as outpatient Admission and Anticipated Discharge Date Admission Date: December 08, 2019 Subjective Patient sitting up in the chair, in no acute distress. Patient's is at the bedside. Patient denies any fevers, chills, chest pain, shortness of breath, abdominal pain, nausea or vomiting. She still has significant lower extremity edema. She thinks that it is better now after light compression stockings applied by wound care. She is determined to be discharged home today however and wants to follow-up as outpatient. Discussed with nephrology, patient and her about all the recommendations and follow-ups. They are in agreement. Review of Systems Review of Systems: All systems reviewed & are unremarkable except as noted in HPI & below Constitutional: no fever and no chills Respiratory: no cough and no dyspnea Cardiovascular: no chest pain and no palpitations Gastrointestinal: no abdominal pain and no vomiting Physical Exam Physical Exam: Constitutional: Elderly woman chronically ill looking, sitting up in a chair, in no acute distress Eyes: PERRL, conjunctivae normal, anicteric sclerae ENMT: external ear and nose normal, oropharynx normal Respiratory: normal respiratory effort, lungs clear to auscultation Cardiovascular: RRR S1 S2 bilateral pedal edema Gastrointestinal (Abdomen): Inspection/Auscultation: + abdomen distended and normal bowel sounds Percussion/Palpation: abdomen soft; abdomen nontender Musculoskeletal: Bilateral leg edema, left foot erythema Neurologic: PERRL, EOMI, accommodation nl, no face palsy, no dysarthria Psychiatric: A+Ox3, euthymic affect Results & Data Results & Data ([facility]) Vital Signs (Past 12 Hours) Vital Signs Temp Pulse Pulse Resp BP Pulse Ox 12/10/19 07:16 90 12/10/19 07:01 37.1 C 90 16 97/64 L 96 12/10/19 03:13 37.1 C 98 H 14 91/60 L 97 12/09/19 23:45 87 12/09/19 22:57 36.5 C 90 14 102/64 97 Laboratory Results 12/10/19 12/10/19 12/10/19 Range/Units 09:47 06:47 06:47 WBC 2.75 L (4.8-10.8) K/uL RBC 2.43 L (4.2-5.4) M/uL Hgb Pending 8.4 L (12.0-16.0) g/dL Hct Pending 24.1 L (37-47) % MCV 99.2 (80-100) fL MCH 34.6 H (25-34) pg MCHC 34.9 (32-36) g/dL RDW Std Deviation 62.7 H (36.4-46.3) fL RDW Coeff of Dali 17.5 H (11.5-14.5) % Plt Count 144 (130-400) K/uL MPV 10.5 H (7.4-10.4) fL Sodium 139 (136-145) mmol/L Potassium 3.9 (3.5-5.1) mmol/L Chloride 106 (98-107) mmol/L Carbon Dioxide 27 (21-32) mmol/L Anion Gap 6.0 (3-11) BUN 43 H (7-18) mg/dl Creatinine 1.81 H (0.6-1.2) mg/dl Est Cr Clr Drug Dosing 21.0 ml/min Est GFR ( Amer) 30.5 Est GFR (Non-Af Amer) 26.3 BUN/Creatinine Ratio 23.6 H (10-20) Glucose 124 H (70-99) mg/dl Calcium 7.8 L (8.5-10.1) mg/dl Phosphorus 2.7 (2.5-4.9) mg/dl Magnesium 2.1 (1.8-2.4) mg/dl Ur Random Creatinine mg/dl U Random Total Protein (0-11.9) mg/dl Protein/Creatinin Ratio (0-0.2) 12/09/19 Range/Units Unknown WBC (4.8-10.8) K/uL RBC (4.2-5.4) M/uL Hgb (12.0-16.0) g/dL Hct (37-47) % MCV (80-100) fL MCH (25-34) pg MCHC (32-36) g/dL RDW Std Deviation (36.4-46.3) fL RDW Coeff of Dali (11.5-14.5) % Plt Count (130-400) K/uL MPV (7.4-10.4) fL Sodium (136-145) mmol/L Potassium (3.5-5.1) mmol/L Chloride (98-107) mmol/L Carbon Dioxide (21-32) mmol/L Anion Gap (3-11) BUN (7-18) mg/dl Creatinine (0.6-1.2) mg/dl Est Cr Clr Drug Dosing ml/min Est GFR ( Amer) Est GFR (Non-Af Amer) BUN/Creatinine Ratio (10-20) Glucose (70-99) mg/dl Calcium (8.5-10.1) mg/dl Phosphorus (2.5-4.9) mg/dl Magnesium (1.8-2.4) mg/dl Ur Random Creatinine 45.4 mg/dl U Random Total Protein 6.2 (0-11.9) mg/dl Protein/Creatinin Ratio 0.1 (0-0.2) Medications Administered Current Inpatient Medications Acetaminophen (Acetaminophen 325 Mg Tab) 325 mg PO Q6H PRN PRN Reason: Pain or Fever Stop: 01/07/20 14:44 Last Admin: 12/09/19 09:08 Dose: 325 mg Documented by: Aspirin (Aspirin 81 Mg Ectab) [facility] [place] Stop: 01/08/20 08:59 Last Admin: 12/10/19 07:52 Dose: 81 mg Documented by: Cyanocobalamin (Cyanocobalamin 500 Mcg Tablet (Vitamin B-12)) 1,000 mcg [facility] [place] Stop: 01/08/20 08:59 Last Admin: 12/10/19 07:52 Dose: 1,000 mcg Documented by: Heparin Sodium (Porcine) (Heparin Sod 5,000 Unit/0.5 Ml Vial) 5,000 units SQ Q12 [facility] Stop: 01/07/20 20:59 Last Admin: 12/10/19 07:57 Dose: 5,000 units Documented by: Ceftriaxone Sodium 1,000 mg/ (Dextrose) 50 mls @ 100 mls/hr IV Q24H [facility]; Protocol Stop: 12/15/19 17:29 Last Infusion: 12/09/19 17:55 Dose: Infused Documented by: Furosemide 20 mg/ Albumin (Human) 52 mls @ 54 mls/hr IV TID@0600,1200,1800 [facility] Stop: 12/12/19 11:59 Last Infusion: 12/10/19 06:58 Dose: Infused Documented by: Latanoprost (Latanoprost 0.005% Op Soln 2.5 Ml Btl) 1 drops [facility]B [facility] [place] Stop: 01/08/20 08:59 Last Admin: 12/10/19 07:57 Dose: 1 drops Documented by: Multivitamins (Multivitamin Tab) 1 tab [facility] [place] Stop: 01/08/20 08:59 Last Admin: 12/10/19 07:52 Dose: 1 tab Documented by: Sertraline HCl (Sertraline Hcl 50 Mg Tablet) 25 [facility] [place] Stop: 01/08/20 08:59 Last Admin: 12/10/19 07:52 Dose: 25 mg Documented by: Tramadol HCl (Tramadol Hcl 50 Mg Tablet) 25 mg PO Q6H PRN PRN Reason: Pain Stop: 01/07/20 14:44 Travoprost (Travoprost Z 0.004% Oph Soln 2.5 Ml Btl) 1 drops OPB [facility] Stop: 01/08/20 08:59 Last Admin: 12/10/19 07:57 Dose: 1 drops Documented by:
[2019-12-10 09:59] LABS: Hemoglobin 9.1 g/dL (12.0-16.0)
--- NOTE | 2019-12-10 14:55 | Discharge Summary ---
Date of Service December 10, 2019 Admission HPI Per Admitting Provider This is a 79 year female who follows with [facility] oncology Dr. 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 On 11/27/2019 Dr. Haynes had prescribed her Levaquin 500 mg daily for possible cellulitis of left foot which patient. Patient has history of fluid overload and has paracentesis in the past but the main concern of her family members González and son Jasmeet ([phone]) that patient has been have more seepage from the left leg. Patient's left leg had more swelling around 7 to 10 days ago and the seepage starting 2 days ago. On exam, her left leg is colder than the right leg but patient and her family insists that this is chronically the case and they reported leg imaging several months ago that did not find evidence of deep vein thrombosis or peripheral arterial disease. One of her toes of the left foot appears dusky. Patient agreed to have ultrasound of lower extremities in the hospital and for diuresis of the legs as inpatient after much convincing from her family members. on review of systems: patient denies fevers or shortness of breath or chest pain or abdominal pain or problems with appetite or diarrhea or dysuria. She allowed to for noriega to be placed in the ED to prevent urine from going down the left leg in case she cannot get to commode in time Family Health history of mother with diabetes mellitus and father with kidney failure Primary Care Provider: Herb Sullivan MD Admission Exam Per Admitting Provider Constitutional: + thin and comfortable Eyes: PERRL, conjunctivae normal, anicteric sclerae EOM intact bilaterally ENMT: external ear and nose normal, oropharynx normal Neck: trachea midline, no thyromegaly normal visual inspection Respiratory: normal respiratory effort, lungs clear to auscultation Cardiovascular: Rate/Rhythm: regular rate and regular rhythm Gastrointestinal (Abdomen): Inspection/Auscultation: normal bowel sounds Percussion/Palpation: abdomen soft (minimal abdomen distension) Musculoskeletal: Head/Neck/Chest: normocephalic and head atraumatic Neurologic: PERRL, EOMI, accommodation nl, no face palsy, no dysarthria moves all extremities Psychiatric: Orientation: alert, oriented to person, oriented to place, oriented to time and cooperative Genitourinary: a noriega was placed in the ED Principal Diagnosis Cellulitis, lymphedema, fluid overload, malnutrition, anemia, metastatic breast cancer Discharge Exam Constitutional: Elderly woman chronically ill looking, sitting up in a chair, in no acute distress Eyes: PERRL, conjunctivae normal, anicteric sclerae ENMT: external ear and nose normal, oropharynx normal Respiratory: normal respiratory effort, lungs clear to auscultation Cardiovascular: RRR S1 S2 bilateral pedal edema Gastrointestinal (Abdomen): Inspection/Auscultation: + abdomen distended and normal bowel sounds Percussion/Palpation: abdomen soft; abdomen nontender Musculoskeletal: Bilateral leg edema, left foot erythema Neurologic: PERRL, EOMI, accommodation nl, no face palsy, no dysarthria Psychiatric: A+Ox3, euthymic affect Discharge Data Allergies Allergy/AdvReac Type Severity Reaction Status Date / Time diphenhydramine AdvReac Confusion Verified 12/08/19 12:26 [From Benadryl] Consultations 12/08/19 13:19 ED Decision to Admit Stat 12/08/19 14:37 Consult Case Management - Discharge Planning Routine 12/08/19 14:39 Consult Nephrology Routine Ordered Studies 12/08/19 14:19 US arterial duplex LE Routine IMPRESSION: 1. There is no sonographic evidence of high-grade stenosis or focal vessel cut off throughout the arteries of the right or left lower extremity. 2. Ankle brachial indices could not be assessed due to lower extremity edema. US venous doppler LE Routine IMPRESSION: There is no sonographic evidence of deep venous thrombosis identified in the right or left lower extremity. Hospital Course (1) Lower extremity edema: Cellulitis of Left Foot 79 year female who follows with [facility] oncology Dr. 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 On 11/27/2019 Dr. Haynes had prescribed her Levaquin 500 mg daily for possible cellulitis of left foot which patient. History of fluid overload and has paracentesis in the past Doppler negative for DVT Continue iv ceftriaxone for cellulitis while inpt, will switch to p.o. antibiotic Currently fluid overloaded Continue iv lasix and albumin while inpt Will appreciate nephrology recommendation (2) Hypoalbuminemia: Severe protein calorie malnutrition underweight with BMI of 19.7 serum albumin 2.6 Patient is malnourished likely from chronic medical problems and malignancy Nutrition consulted, patient has supplemental boost (3) CKD (chronic kidney disease): Stable Appreciate nephrology recommendations with respect to fluid overload Discussed with Dr. Matias, patient will follow-up with CKD clinic in 2 to 3 weeks, she will be discharged on Lasix 60 mg twice a day and spironolactone 12.5 mg daily patient will also weigh herself daily or at least 3 times a week. Also recommend BMP in 1 week. Continue current sodium and fluid restriction. (4) Breast cancer metastasized to multiple sites: Follows with [facility] oncology Dr. 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), she has had received chemotherapy treatments in the recent past PT/OT evaluations, case management consult prn pain medications (5) Chronic anemia: Hb at baseline today hemoglobin lower around 9, recommend to follow-up as outpatient FOBT ordered, however patient insists on going home today, recommend to follow- up CBC as outpatient Primary open angle glaucoma Continue her home eyedrops DVT Ppx - hep sq Spoke with patient and about plans They are more interested in getting some fluid off her and having her discharged to follow up with her oncologist Patient and her are interested in going home and follow-up as outpatient Total Time Total Time Spent Total Time Spent (In Minutes): 40 Total Time Includes: Examination of the Patient, Discharge Planning, Medication Reconciliation and Communication With Other Providers Discharge Plan Discharge Items Patient Disposition: Home - Home Health Services Reason For Visit: SWOLLEN LEFT LEG, VOLUME OVERLOAD Discharge Diagnosis: Cellulitis, lymphedema, fluid overload, malnutrition, anemia Activity: Per Instructions section Non-emergency contact: Primary Care Provider, Neon Sign Maker and Oncologist Call non-emergency contact if: you have any medication questions and your symptoms worsen Follow-up/Referrals: Herb Sullivan MD [Primary Care Provider] - 12/15/19 2:00 pm (12/15/2019 2:00 PM Provider Herb Sullivan III, MD Department Family Practice [facility] ) Ajay Ramsye MD [Physician] - 12/25/19 1:40 pm (Date & Time 12/25/2019 1:40 PM Provider Ajay Ramsey MD Department Nephrology, [facility] ) Diet: Low Sodium (2gm) Fluids: 1500ml (6 cups) Diet Comment: Recommend more nutritious, higher in protein diet, recommend boost supplement Addtl Attending Provider Instructions: Follow-up with primary care doctor within 1 week. The appointment was scheduled for you for December 14. At that time BMP, blood work should be also obtained and sent to nephrology clinic. Follow-up with project manager finance, in CKD clinic in 2 to 3 weeks/Dr. Matias. Weigh yourself daily or at least 3 times a week and record these numbers. These numbers are important for your physicians to adjust further your medications. Take Lasix 60 mg twice a day at least 4-hours apart, and spironolactone 12.5 mg daily. Recommend to continue salt and fluid restriction as above. And recommend lymphedema clinic if possible to help with lower extremity edema. Finish antibiotic treatment for cellulitis. Also recommend to have blood work, to follow-up on your anemia, CBC. Pending Studies at Discharge: No Stand-Alone Forms: [facility], Smoking Cessation Medications and DC Order Prescriptions: New doxycycline hyclate 100 mg capsule 100 mg PO BID 5 Days Qty: 10 RF: 0 spironolactone 25 mg tablet 12.5 mg PO DAILY 30 Days Qty: 15 RF: 0 Continued aspirin [Adult Aspirin Regimen] 81 mg tablet,delayed release (DR/EC) 81 mg PO QAM RF: 0 tramadol [Ultram] 50 mg tablet 50 mg PO QID PRN (Reason: pain) RF: 0 multivitamin [Daily Multiple] tablet 1 tab PO QAM RF: 0 travoprost [Travatan Z] 0.004 % Drops 1 drp OPB QAM RF: 0 latanoprost 0.005 % Drops 1 drp OPB QAM RF: 0 sertraline [Zoloft] 25 mg Tablet 25 mg PO QAM RF: 0 cyanocobalamin (vitamin B-12) [Vitamin B-12] 1,000 mcg Tablet 0 mcg PO QAM RF: 0 ondansetron HCl [Zofran] 8 mg Tablet 8 mg PO Q8H PRN (Reason: Nausea) RF: 0 Changed furosemide [Lasix] 20 mg Tablet 60 mg PO BID 14 Days Qty: 84 RF: 0 Discontinued spironolactone [Aldactone] 50 mg Tablet 50 mg PO QAM RF: 0 Discharge Orders: Discharge Order (Routine); Ordered 12/10/19 Ordered By: Raghav Thomas Admission Data Admit Date/Time: 12/08/19 14:40 Attending Provider: Raghav Thomas Admit Provider: Christian Smith Primary Care Provider: Herb Sullivan Other Providers: Christian Smith ; Katelin Matias ; Alyssa Wei I.
== END 2019-12-10 15:39 | disposition home health service (06) | DRG 602 ==
LOC: ED 11:19 → SUATTDRO 14:40 → 2W 14:40